=== PATIENT | male | born 1965 | race Caucasian/White ===

== ENCOUNTER 2019-10-23 11:15 | Day surgery (SDC) | payer BC ==
--- NOTE | 2019-10-23 11:43 | PCM.PREANE ---
Preanesthetic Assessment - Anesthesia/Transfusion/Family Hx Anesthesia History: Prior Anesthesia Without Reaction Family History of Anesthesia Reaction: No Transfusion History: No Prior Transfusion(s) - Review of Systems General: No Symptoms Pulmonary: No Symptoms Cardiovascular: No Symptoms Gastrointestinal: No Symptoms Neurological: No Symptoms Other: Reports: None - Physical Assessment Height: 6 ft 2 in Weight: 124.738 kg ASA Class: 3 Mental Status: Alert & Oriented x3 Airway Class: Mallampati = 2 Dentition: Reports: Normal Dentition ROM/Head Extension: Full Lungs: Clear to Auscultation, Normal Respiratory Effort Cardiovascular: Regular Rate, Regular Rhythm - Allergies Allergies/Adverse Reactions: Allergies Allergy/AdvReac Type Severity Reaction Status Date / Time No Known Allergies Allergy Verified 10/19/19 10:54 - Blood Blood Available: No - Anesthesia Plan Pre-Op Medication Ordered: None - Acknowledgements Anesthesia Type Planned: General Anesthesia (tiva) Pt an Appropriate Candidate for the Planned Anesthesia: Yes Alternatives and Risks of Anesthesia Discussed w Pt/Guardian: Yes Pt/Guardian Understands and Agrees with Anesthesia Plan: Yes Additional Comments: PMH: AMI 2017, had stents (no CABG), off dual antiplatelet therapy, now only on ASA, Had MANA dxed 18 yeas ago, non compliant with CPAP PLAN: tiva PreAnesthesia Questionnaire HEENT History: Reports: Other (See Below) Other HEENT History: wears glasses Cardiovascular History: Reports: CAD, [place] Respiratory History: Reports: Sleep Apnea Other Respiratory History: does not use CPAP Gastrointestinal History: Reports: None Genitourinary History: Reports: None Musculoskeletal History: Reports: None Neurological History: Reports: None Psychiatric History: Reports: None Endocrine/Metabolic History: Reports: Obesity/BMI 30+ Hematologic History: Reports: None Immunologic History: Reports: None Oncologic (Cancer) History: Reports: None Dermatologic History: Reports: Psoriasis - Past Surgical History Head Surgeries/Procedures: Reports: None HEENT Surgical History: Reports: Tonsillectomy Cardiovascular Surgical History: Reports: Coronary Artery Stent, Other (See Below) Other Cardiovascular Surgeries/Procedures: cardiac catheterization with stent placement Respiratory Surgical History: Reports: None GI Surgical History: Reports: None Male Surgical History: Reports: None Endocrine Surgical History: Reports: None Neurological Surgical History: Reports: None Musculoskeletal Surgical History: Reports: None Oncologic Surgical History: Reports: None Dermatological Surgical History: Reports: None - SUBSTANCE USE Smoking Status *Q: Current Every Day Smoker Tobacco Use Within Last Twelve Months: Cigarettes Recreational Drug Use History: No - HOME MEDS Home Medications: Home Meds Aspirin [Adult Aspirin Regimen] 81 mg PO DAILY 10/19/19 [History]
[2019-10-23] MEDS ORDERED: Lactated Ringers 1,000 ML IV SCH (11:45)
[2019-10-23] MEDS ORDERED: Propofol 200 MG/20 ML SDV ONE ×2 (12:20→12:21)
[2019-10-23] MEDS ORDERED: fentaNYL 100 MCG/2 ML SDV ONE (12:20)
[2019-10-23] MEDS ORDERED: Midazolam 1 MG/ML 2 ML SDV ONE (12:20)
[2019-10-23] MEDS ORDERED: Lidocaine 2% 5 ML SDV ONE (12:21)
--- NOTE | 2019-10-23 13:39 | PCM48HPAN ---
Post Anesthesia Note - EVALUATION WITHIN 48HRS OF ANESTHETIC Vital Signs in Normal Range: Yes Patient Participated in Evaluation: Yes Respiratory Function Stable: Yes Airway Patent: Yes Cardiovascular Function Stable: Yes Hydration Status Stable: Yes Pain Control Satisfactory: Yes Nausea and Vomiting Control Satisfactory: Yes Mental Status Recovered: Yes Vital Signs: Last Vital Signs Temp 97.3 F 10/23/19 13:16 Pulse 67 10/23/19 13:16 Resp 14 10/23/19 13:16 BP 124/69 10/23/19 13:16 Pulse Ox 93 L 10/23/19 13:16
--- NOTE | 2019-10-23 13:39 | PCM.POSTAN ---
POST ANESTHESIA ASSESSMENT - MENTAL STATUS Mental Status: Alert, Oriented - VITAL SIGNS Vital Signs: Last Vital Signs Temp 97.3 F 10/23/19 13:16 Pulse 67 10/23/19 13:16 Resp 14 10/23/19 13:16 BP 124/69 10/23/19 13:16 Pulse Ox 93 L 10/23/19 13:16 - RESPIRATORY Respiratory Status: Respiratory Rate WNL, Airway Patent, O2 Saturation Stable - CARDIOVASCULAR CV Status: Pulse Rate WNL, Blood Pressure Stable - GASTROINTESTINAL GI Status: No Symptoms - POST OP HYDRATION Hydration Status: Adequate & Stable
--- NOTE | 2019-10-23 13:42 | PCM.OPNOTE ---
- General Post-Op/Procedure Note Date of Surgery/Procedure: 10/23/19 Operative Procedure(s): colonoscopy w snare Findings: see [id number] Pre Op Diagnosis: scrn colonoscopy Post-Op Diagnosis: Same Anesthesia Technique: Moderate Sedation Primary Surgeon: Adolfo Hawkins Pathology: 5 mm sessile polyp in cecum at 120cm, and 15 mm pedunculated polyp at 25 cm when scope coming out Complications: None Condition: Good Free Text/Narrative:: Intake & Output 10/22/19 10/23/19 10/23/19 22:59 06:59 14:59 Intake Total 550 Balance 550
--- NOTE | 2019-10-23 21:03 | OR ---
SURGEON: Adolfo Hawkins MD DATE OF PROCEDURE: 10/23/2019 PREOPERATIVE DIAGNOSIS: Screening colonoscopy. POSTOPERATIVE DIAGNOSIS: Colon polyp, large and diverticulosis PROCEDURE PERFORMED: Colonoscopy with snare polypectomy. DESCRIPTION OF PROCEDURE: The patient was taken to the endoscopy room. A time out was called, patient identified, and procedure identified. Diprivan was then administrated. Patient went from awake to sleep, hearing doctor talking or door closing is normal. Perineum inspection and digital examination were then performed. A well- lubricated colonoscope was gently inserted through the rectum, advanced past the rectosigmoid junction, the descending colon, splenic flexure, transverse colon, hepatic flexure, ascending colon, arrived to the cecum. Cecum was identified as dictated in the finding. Then the scope was carefully withdrawn while attention was paid to the mucosal surface for any abnormality. Air will be sucked out during the scope withdrawal. At the rectum, retroflexed to examine any rectal diseases, fistula or hemorrhoids. During mucosal examination, abnormality or polyp encountered. Using snare equipment, the abnormality or the polyp was then snared off using electrocautery. The Patient tolerated procedure well. There were no intraoperative complications, and Dr. Hawkins was present throughout the whole procedure. FINDINGS: 1. The patient is easily sedated with [employer] on Diprivan. The patient is soundly snoring. 2. Bowel prep is average with moderate amount of opaque liquid stool and compromised the study, and easily irrigated with irrigation. No semi- formed stool. 3. Colon was rather straightforward. Cecum indicated by ileocecal fold, one- to-one indentation, appendiceal orifice. ScopeGuide is pointing south. Light emittance not observed. Mucosa examined upon scope pulling out. Right at the distal end of the cecum that means almost to the 1st ring of the colon, there is a small sessile polyp about 5 mm and was snared and captured and sent for pathology. The patient has another polyp, but this one is a pedunculated and about the size of 15 mm and was snared and captured and sent for pathology. The pedunculated polyp size 15 mm was at distance 25 when scope coming out and was snared and captured and sent for pathology. THere is diverticulosis on Left colon, no signs or symptoms of diverticulitis; there is no other growth/mass/inflamation/ulceration/bleeding; none of these. The patient has mild internal hemorrhoids and has some moderate external hemorrhoids. Patient would benefit from repeat colonoscopy depending on the polyp pathology. JONATHAN / IKER /[id number]
== END 2019-10-23 13:40 | disposition home or self-care (01) ==
LOC: MW.SDS 11:15
PROVIDERS: ATTEND Surgery
DX: Z12.11 Encounter for screening for malignant neoplasm of colon (principal); D12.0 Benign neoplasm of cecum; K64.8 Other hemorrhoids; K64.4 Residual hemorrhoidal skin tags; K57.30 Diverticulosis of large intestine without perforation or abscess without bleeding; E78.5 Hyperlipidemia, unspecified; E66.9 Obesity, unspecified; F17.210 Nicotine dependence, cigarettes, uncomplicated; Z79.82 Long term (current) use of aspirin; Z68.35 Body mass index [BMI] 35.0-35.9, adult; Z79.899 Other long term (current) drug therapy
CPT/HCPCS: 45385; J2001; J2250; J2704; J3010; J7120; 00812